=== PATIENT | male | born 1960 | race Caucasian/White ===

== ENCOUNTER 2016-08-12 06:55 | Day surgery (SDC) | payer BC ==
[2016-08-07 16:26] VITALS: BMI 18.7
[~2016-08-12 06:55] MED LIST: LACTATED RINGERS 1,000 ML IV SCH
[2016-08-12] MEDS ORDERED: LACTATED RINGERS 1,000 ML IV ONE (07:08)
[2016-08-12 07:17] VITALS: TEMP 97
[2016-08-12] MEDS ORDERED: PROPOFOL 10 MG/ML 20 ML VIAL IV ONE (07:37)
--- NOTE | 2016-08-12 07:50 | P.GSHP ---
History of Present Illness H&P Date: 08/12/16 Chief Complaint: Screening colonoscopy This is a 56-year-old male referred from Dr. Jacklyn Garay. Patient presents today for screening colonoscopy. His last colonoscopy was over 10 years ago. He denies a significant GI complaints. - Constitutional Constitutional: Reports as per HPI Past Medical History Past Medical History: Atrial Fibrillation, Hyperlipidemia, Hypertension Additional Past Medical History / Comment(s): L lung collapsed at age 18. Hx. of kidney stones. History of Any Multi-Drug Resistant Organisms: None Reported Additional Past Surgical History / Comment(s): Sinus surgery, chest tube, colonoscopy. Past Anesthesia/Blood Transfusion Reactions: No Reported Reaction Past Psychological History: No Psychological Hx Reported Smoking Status: Never smoker Past Alcohol Use History: Occasional Past Drug Use History: None Reported Medications and Allergies Home Medications Medication Instructions Recorded Confirmed Type Atenolol [Tenormin] 50 mg PO DAILY 09/14/15 08/12/16 History Atorvastatin [Lipitor] 20 mg PO HS 09/14/15 08/12/16 History Flecainide [Tambocor] 50 mg PO Q12HR 09/14/15 08/12/16 History Fluticasone Nasal [place] [Flonase 1 spray EA NOSTRIL DAILY 09/14/15 08/12/16 History Nasal [place]] Allergies Allergy/AdvReac Type Severity Reaction Status Date / Time No Known Allergies Allergy Verified 08/12/16 07:10 Surgical - Exam Vital Signs Temp Pulse Resp BP Pulse Ox 97.0 F L 60 18 115/72 97 08/12/16 07:15 08/12/16 07:15 08/12/16 07:15 08/12/16 07:15 08/12/16 07:15 - General well developed, no distress - Eyes PERRL - ENT normal pinna - Neck no masses - Respiratory normal expansion - Cardiovascular Rhythm: regular - Abdomen Abdomen: soft, non tender Assessment and Plan Plan: We'll perform screening colonoscopy.
--- NOTE | 2016-08-12 08:02 | P.OP ---
Date of Procedure: 08/12/16 Preoperative Diagnosis: Screening colonoscopy Postoperative Diagnosis: Normal colonoscopy Procedure(s) Performed: Colonoscopy Anesthesia: MAC Surgeon: Benja Mcgrath Pathology: none sent Condition: stable Disposition: PACU Description of Procedure: PROCEDURE: The patient was placed on the endoscopy table in the lateral position. Digital rectal examination was performed which revealed no abnormalities. The prostate was symmetrical without nodules. Flexible colonoscope was then placed in the patient's anus and passed throughout the entire colon. The ileocecal valve was visualized. The cecum, ascending, transverse, descending and sigmoid colon were normal. The rectum was normal as well. There were no masses, polyps or diverticula noted in the entire colon. SUMMARY OF FINDINGS: Normal colonoscopy.
[2016-08-12 08:34] VITALS: BP 115/84; PULSE 62; RESP 18
== END 2016-08-12 08:39 | disposition home or self-care (01) ==
LOC: ORWHC2ENDO 06:55
PROVIDERS: ATTEND Surgery
DX: Z12.11 Encounter for screening for malignant neoplasm of colon (principal); E78.5 Hyperlipidemia, unspecified; I10 Essential (primary) hypertension; I48.91 Unspecified atrial fibrillation; Z87.442 Personal history of urinary calculi; Z79.899 Other long term (current) drug therapy
CPT/HCPCS: J2704; G0121; 99153

== ENCOUNTER 2018-08-31 11:26 | Day surgery (SDC) | payer BC ==
[2018-08-25 14:44] VITALS: BMI 32.3
[~2018-08-31 11:26] MED LIST changes: +SODIUM CHLORIDE 0.9% 1,000 ML IV SCH
[2018-08-31 12:38] LABS: Basophils % (A) 0 %; Eosinophils # (A) 0.3 k/uL (0-0.7); Eosinophils % (A) 5 %; HCT 47.5 % (39.0-53.0); HGB 15.6 gm/dL (13.0-17.5); Lymphocytes # (A) 1.2 k/uL (1.0-4.8); Lymphocytes % (A) 21 %; MCH 31.3 pg (25.0-35.0); MCHC 32.8 g/dL (31.0-37.0); MCV 95.5 fL (80.0-100.0); Mean Platelet Volume 6.3; Monocytes # (A) 0.3 k/uL (0-1.0); Monocytes % (A) 5 %; Neutrophils # (A) 3.8 k/uL (1.3-7.7); Neutrophils % (A) 67 %; Platelet Count 241 k/uL (150-450); RBC 4.97 m/uL (4.30-5.90); WBC 5.7 k/uL (3.8-10.6)
[2018-08-31 12:46] LABS: Anion Gap 6 mmol/L; Blood Urea Nitrogen 14 mg/dL (9-20); Calcium 9.6 mg/dL (8.4-10.2); Carbon Dioxide 26 mmol/L (22-30); Chloride 108 mmol/L (98-107); Glucose 85 mg/dL (74-99); Sodium 140 mmol/L (137-145)
[2018-08-31 13:05] LABS: Potassium 5.2 mmol/L (3.5-5.1)
[2018-08-31] MEDS ORDERED: LIDOCAINE 1% INJ 10MG/ML (20 ML MDV) ONE (13:12)
[2018-08-31] MEDS ORDERED: PROPOFOL 10 MG/ML 20 ML VIAL IV ONE (13:13)
[2018-08-31] MEDS ORDERED: NEOSTIGMINE 1 MG/ML 10 ML VIAL ONE (13:13)
[2018-08-31] MEDS ORDERED: MIDAZOLAM 2 MG/2 ML VIAL ONE (13:13)
[2018-08-31] MEDS ORDERED: SUCCINYLCHOLINE CHLORIDE 100 MG/5 ML SYR IV ONE (13:13)
[2018-08-31] MEDS ORDERED: PHENYLEPHRINE-0.9% NACL SYG 1 MG/10 ML SYRINGE ONE (13:13)
[2018-08-31] MEDS ORDERED: ISOPROTERENOL 250 MCG/1.25 ML SYR IV ONE (13:13)
[2018-08-31] MEDS ORDERED: fentaNYL (PF) 50 MCG/ML 2 ML AMP ONE (13:13)
[2018-08-31] MEDS ORDERED: ROCURONIUM BROMIDE 10 MG/ML 10 ML VIAL IV ONE (13:13)
[2018-08-31] MEDS ORDERED: GLYCOPYRROLATE 0.2 MG/ML 2 ML VIAL ONE (13:13)
[2018-08-31] MEDS ORDERED: LIDOCAINE 1% INJ 10MG/ML (20 ML MDV) SQ ONE (13:42)
[2018-08-31] MEDS ORDERED: IV FLUID CONTINUATION 800 ML IV ONE (13:43)
[2018-08-31] MEDS ORDERED: HEPARIN SODIUM (1,000 UNIT/ML) 1,000 UNIT in SODIUM CHLORIDE 0.9% 1,000 ML IRRIGATION ONE (14:20)
[2018-08-31] MEDS ORDERED: LACTATED RINGERS 1,000 ML IV ONE (15:20)
[2018-08-31] MEDS ORDERED: ACETAMINOPHEN TAB 325 MG TAB PO PRN ×2 (15:40→16:16)
--- NOTE | 2018-08-31 15:50 | P.PRLE ---
RE: Devon Tavares Dear Jacklyn Devon Anusha presented to the office with typical atrial flutter. He had been experiencing episodes of palpitations since April. He underwent successful radio frequency ablation. I plan to stop his atenolol and watch for any future arrhythmias In the past he had a history of atrial fibrillation and I had treated her with oral flecainide but he stopped it on account of complaints of memory loss At this time I would recommend continuing anticoagulation with ELIQUIS apixaban Thank you for entrusting me with the care of the patient Warm regards Sincerely Ike Lainez
[2018-08-31] MEDS ORDERED: ACETAMINOPHEN IV (For NPO) 1,000 MG in EMPTY BAG 1 BAG IVPB ONE (16:15)
[2018-08-31] MEDS ORDERED: ONDANSETRON 4 MG/2 ML VIAL IVP ONE (16:25)
[2018-08-31] MEDS: HYDROcodone/APAP 5-325MG 1 EACH TAB PO PRN ×2 (17:16→20:28)
[2018-08-31] MEDS: APIXABAN 5 MG TAB PO SCH (20:28)
[2018-09-01 05:13] VITALS: PULSE 77
[2018-09-01 07:49] VITALS: BP 119/76; RESP 18; TEMP 97.4
--- NOTE | 2018-09-01 08:26 | CE ---
CARDIAC ELECTROPHYSIOLOGY REPORT Mr. Tavares is a 58-year-old male patient who has a history of recurrent palpitations since April and recently was found to be in a typical atrial flutter, symptomatic. He was anticoagulated and was brought in for an EP study and ablation. The patient brought to the EP lab in a fasting state. Written informed consent was obtained prior to the procedure. The right and left groins were prepped and draped as per protocol. Venous sheaths were placed in the right vein via these diagnostic mapping and ablation catheters were placed. Intracardiac echo catheter was placed. The patient was in atrial flutter at the start of the study. Via a long sheath, the mapping ablation catheter was placed in the isthmus and a concealed entrainment was noted with post pacing interval very close to the tachycardia cycle length. RF ablation was performed in the mid isthmus and the tachycardia was terminated. Thereafter, with intracardiac echocardiography, in sinus rhythm, 3-D mapping of the isthmus and the right atrium was once again performed and complete anatomic line was made from the tricuspid valve up to the eustachian ridge without any gaps. With differential pacing, bidirectional block was proven. The isthmus conduction time was 198 milliseconds with pacing on either side of the line. Following that, a detailed EP study was performed since he has a history of atrial fibrillation, but could not tolerate flecainide. Sinus node recovery times at 600, 500 and 400 milliseconds were 1333, 1308 and 1241 milliseconds. Corresponding corrected sinus recovery times within normal limits. AV node Wenckebach block 400 milliseconds, VA Wenckebach block 550 milliseconds. Atrial ERP from the high right atrium was 600/260 milliseconds. Burst stimulation was performed in the high right atrium from 400 milliseconds down to 230 milliseconds. No atrial fibrillation induced. Isuprel wide-open followed by 5 mcg of Isuprel was started. Coronary extra stimulation up to double extrastimuli from the coronary sinus was performed. Burst stimulation was performed from the coronary sinus down to 200 milliseconds. Very brief episodes of atrial tachycardia with distal to proximal coronary sinus sequence noted, but this lasted for only a few beats and was inconsistently induced. No atrial fibrillation was induced. At the end of the procedure, intracardiac echocardiography revealed absence of any pericardial effusion. RESULT: Diagnostic EP study revealing typical atrial flutter as a mechanism of tachycardia. Successful radiofrequency ablation was performed with complete bidirectional block. Normal sinus node recovery times. Normal AV node function. No evidence of slow pathway conduction. PLAN: Stop atenolol. Continue apixaban 5 mg twice daily. MMODL / IJN: [id number] /
[2018-09-01] MEDS ORDERED: PRAVASTATIN SODIUM 20 MG TAB PO SCH (09:00)
[2018-09-01] MEDS ORDERED: ATENOLOL 50 MG TAB PO SCH (09:00)
[2018-09-01] MEDS: APIXABAN 5 MG TAB PO SCH (09:09)
--- NOTE | 2018-09-01 11:58 | P.DS ---
Providers Attending physician: Ike Lainez Primary care physician: [facility] Course: Patient is doing well. He has no dizziness lightheadedness palpitations chest pain or shortness of breath he is lying comfortably in bed His groins were examined and they've healed well Normal heart sounds regular Breath sounds are clear no rhonchi no crackles Abdomen soft nontender Adnexa and is warm edema Impression Symptomatic typical atrial flutter status post successful ablation History of paroxysmal atrial fibrillation intolerant of flecainide Bicuspid aortic valve Plan Continue ELIQUIS, stop atenolol discharge home today in follow-up with Dr. Velázquez in about 2 weeks Patient Condition at Discharge: Stable Plan - Discharge Summary Discharge Rx Participant: Yes New Discharge Prescriptions: Discontinued Atenolol [Tenormin] 50 mg PO DAILY No Action Fluticasone Nasal [place] [Flonase Nasal [place]] 1 spray EA NOSTRIL DAILY PRN PRN Reason: ALLERGIES Apixaban [Eliquis] 5 mg PO BID Pravastatin Sodium [Pravachol] 20 mg PO DAILY Potassium 1 tab PO DAILY Discharge Medication List Fluticasone Nasal [place] [Flonase Nasal [place]] 1 spray EA NOSTRIL DAILY PRN 09/14/15 [History] Apixaban [Eliquis] 5 mg PO BID 08/18/18 [History] Potassium 1 tab PO DAILY 08/18/18 [History] Pravastatin Sodium [Pravachol] 20 mg PO DAILY 08/18/18 [History] Follow up Appointment(s)/Referral(s): Ike Lainez MD [STAFF PHYSICIAN] - 2 Weeks (Groin check within 2 weeks attention Peggy Teran Keep appointment scheduled for September 11 @ 2:30pm.) Activity/Diet/Wound Care/Special Instructions: Post EP study - Ablation instructions 1. Keep access sites dry for 2 days. 2. No heavy lifting or straining for 2 days. 3. Avoid bending the hips repeatedly for 2 days. 4. You may go up and down stairs slowly Call if the following is noted 1. Bleeding, increasing swelling or pain at the access sites. 2. Increasing chest discomfort, especially upon taking a deep breath. 3. Increasing shortness of breath, at rest or with exertion. 4. Undue cough / phlegm 5. Difficulty or pain while swallowing. 6. Pain or change in color in the extremities. 7. Fever, chills, rigors. 8. Increasing headache or neurologic symptoms. 9. Dizziness, fainting, palpitations Stop atenolol Continue ELIQUIS Discharge Disposition: HOME SELF-CARE
== END 2018-09-01 13:08 | disposition home or self-care (01) ==
LOC: CATHEP 11:26 → 1SOBS 16:01 → CATHEP 09-01 13:08
PROVIDERS: ATTEND Internal Medicine Clinical Cardiac Electrophysiology
DX: I48.3 Typical atrial flutter (principal); I48.0 Paroxysmal atrial fibrillation; I10 Essential (primary) hypertension; Q23.1 Congenital insufficiency of aortic valve; I34.0 Nonrheumatic mitral (valve) insufficiency; I51.7 Cardiomegaly; E78.5 Hyperlipidemia, unspecified; Z79.01 Long term (current) use of anticoagulants; Z79.899 Other long term (current) drug therapy; Z88.2 Allergy status to sulfonamides
CPT/HCPCS: 93623; 93662; 93613; 93653; 80048; 85025; C1894; C1769 ×2; C1730 ×2; C1759; C1893; C1732; J2250; J2710; J2405; J2001; J3010; J1644; J2370; J0330; J2704

== ENCOUNTER 2019-12-15 05:13 | Emergency (ER) | payer BC ==
[2019-12-15] MEDS ORDERED: SODIUM CHLORIDE 0.9% 1,000 ML IV STA ×2 (05:28)
[2019-12-15] MEDS ORDERED: MORPHINE SULFATE 4 MG/ML SYRINGE IV STA (05:28)
--- NOTE | 2019-12-15 05:29 | ED ---
Abdominal Pain HPI - General Chief Complaint: Abdominal Pain Stated Complaint: back/abd pain Time Seen by Provider: 12/15/19 05:15 Source: patient, RN notes reviewed, old records reviewed Mode of arrival: ambulatory Limitations: no limitations - History of Present Illness Initial Comments: This is a 59-year-old male DF for evaluation patient having recurrent right- sided flank pain severe right-sided pain radiating to groin with blood in the ER. Decreased urination, severe pain when he is trying to ER today. Patient has mild nausea no vomiting patient does have history of kidney stones states his pain is significantly worse MD Complaint: abdominal pain, flank pain (Right-sided) -: days(s) Location: diffuse, R flank Radiation: R flank Migration to: suprapubic Severity: severe Severity scale (1-10): 8 Quality: stabbing Consistency: constant Improves With: nothing Worsens With: nothing Associated Symptoms: nausea, anorexia - Related Data Home Medications Medication Instructions Recorded Confirmed Losartan [Cozaar] 25 mg PO DAILY 12/15/19 12/15/19 Pravastatin Sodium [Pravachol] 40 mg PO DAILY 12/15/19 12/15/19 Allergies Allergy/AdvReac Type Severity Reaction Status Date / Time Sulfa (Sulfonamide Allergy Itching Verified 12/15/19 06:37 Antibiotics) Review of Systems ROS Statement: Those systems with pertinent positive or pertinent negative responses have been documented in the HPI. ROS Other: All systems not noted in ROS Statement are negative. Past Medical History Past Medical History: Cancer Additional Past Medical History / Comment(s): SEE DR WEEMS H&P, L lung collapsed at age 18. chest tube, Hx. of kidney stones. prostate cancer History of Any Multi-Drug Resistant Organisms: None Reported Past Surgical History: Orthopedic Surgery Additional Past Surgical History / Comment(s): CARDIOVERSION, LEFT LITTLE FINGER SX, SX ON RT HAND MIDDLE FINGER, Sinus surgery, colonoscopy. prostatectomy Past Anesthesia/Blood Transfusion Reactions: No Reported Reaction Past Psychological History: No Psychological Hx Reported Smoking Status: Never smoker Past Alcohol Use History: Occasional Past Drug Use History: None Reported - Past Family History Father Family Medical History: Cancer Additional Family Medical History / Comment(s): LUNG Sister(s) Family Medical History: Cancer Additional Family Medical History / Comment(s): 4 SISTERS HAVE HAD CANCER General Exam Limitations: no limitations General appearance: alert, in no apparent distress, anxious Head exam: Present: atraumatic, normocephalic, normal inspection Eye exam: Present: normal appearance, PERRL, EOMI. Absent: scleral icterus, conjunctival injection, periorbital swelling ENT exam: Present: normal exam, mucous membranes moist Neck exam: Present: normal inspection. Absent: tenderness, meningismus, lymphadenopathy Respiratory exam: Present: normal lung sounds bilaterally. Absent: respiratory distress, wheezes, rales, rhonchi, stridor Cardiovascular Exam: Present: regular rate, normal rhythm, normal heart sounds. Absent: systolic murmur, diastolic murmur, rubs, gallop, clicks GI/Abdominal exam: Present: soft, normal bowel sounds. Absent: distended, tenderness, guarding, rebound, rigid Extremities exam: Present: normal inspection, full ROM, normal capillary refill. Absent: tenderness, pedal edema, joint swelling, calf tenderness Back exam: Present: normal inspection Neurological exam: Present: alert, oriented X3, CN II-XII intact Psychiatric exam: Present: normal affect, normal mood Skin exam: Present: warm, dry, intact, normal color. Absent: rash Course Vital Signs 12/15/19 12/15/19 05:16 07:45 Temperature 98.3 F 98.2 F Pulse Rate 54 L 72 Respiratory 18 16 Rate Blood Pressure 138/73 126/68 O2 Sat by Pulse 99 97 Oximetry - Reevaluation(s) Reevaluation #1: Medical record is reviewed Patient has pain control Medical Decision Making - Medical Decision Making 59 male to the ER for evaluation patient has a for evaluation of abdominal pain right-sided kidney stone given pain control can be discharged home - Lab Data Result diagrams: 12/15/19 05:46 12/15/19 05:46 Lab Results 12/15/19 12/15/19 12/15/19 Range/Units 05:46 05:46 05:46 WBC 12.5 H (3.8-10.6) k/uL RBC 4.49 (4.30-5.90) m/uL Hgb 14.0 (13.0-17.5) gm/dL Hct 42.3 (39.0-53.0) % MCV 94.2 (80.0-100.0) fL MCH 31.2 (25.0-35.0) pg MCHC 33.1 (31.0-37.0) g/dL RDW 12.7 (11.5-15.5) % Plt Count 238 (150-450) k/uL Neutrophils % 86 % Lymphocytes % 8 % Monocytes % 4 % Eosinophils % 1 % Basophils % 0 % Neutrophils # 10.8 H (1.3-7.7) k/uL Lymphocytes # 1.0 (1.0-4.8) k/uL Monocytes # 0.5 (0-1.0) k/uL Eosinophils # 0.1 (0-0.7) k/uL Basophils # 0.1 (0-0.2) k/uL Sodium 138 (137-145) mmol/L Potassium 4.7 (3.5-5.1) mmol/L Chloride 106 (98-107) mmol/L Carbon Dioxide 25 (22-30) mmol/L Anion Gap 7 mmol/L BUN 20 (9-20) mg/dL Creatinine 1.06 (0.66-1.25) mg/dL Est GFR (CKD-EPI)AfAm 88 (>60 ml/min/1.73 sqM) Est GFR (CKD-EPI)NonAf 76 (>60 ml/min/1.73 sqM) Glucose 140 H (74-99) mg/dL Plasma Lactic Acid Scooter (0.7-2.0) mmol/L Calcium 9.8 (8.4-10.2) mg/dL Total Bilirubin 0.3 (0.2-1.3) mg/dL AST 30 (17-59) U/L ALT 40 (4-49) U/L Alkaline Phosphatase 74 (38-126) U/L Troponin I (0.000-0.034) ng/mL Total Protein 7.7 (6.3-8.2) g/dL Albumin 4.6 (3.5-5.0) g/dL Amylase 99 (30-110) U/L Lipase 103 (23-300) U/L Urine Color Yellow Urine Appearance Clear (Clear) Urine pH 5.0 (5.0-8.0) Ur Specific [place] 1.023 (1.001-1.035) Urine Protein Trace H (Negative) Urine Glucose (UA) Negative (Negative) Urine Ketones Negative (Negative) Urine Blood Large H (Negative) Urine Nitrite Negative (Negative) Urine Bilirubin Negative (Negative) Urine Urobilinogen <2.0 (<2.0) mg/dL Ur Leukocyte Esterase Negative (Negative) Urine RBC 136 H (0-5) /hpf Urine WBC 2 (0-5) /hpf Urine Bacteria Rare H (None) /hpf Urine Mucus Rare H (None) /hpf 12/15/19 12/15/19 Range/Units 05:46 05:46 WBC (3.8-10.6) k/uL RBC (4.30-5.90) m/uL Hgb (13.0-17.5) gm/dL Hct (39.0-53.0) % MCV (80.0-100.0) fL MCH (25.0-35.0) pg MCHC (31.0-37.0) g/dL RDW (11.5-15.5) % Plt Count (150-450) k/uL Neutrophils % % Lymphocytes % % Monocytes % % Eosinophils % % Basophils % % Neutrophils # (1.3-7.7) k/uL Lymphocytes # (1.0-4.8) k/uL Monocytes # (0-1.0) k/uL Eosinophils # (0-0.7) k/uL Basophils # (0-0.2) k/uL Sodium (137-145) mmol/L Potassium (3.5-5.1) mmol/L Chloride (98-107) mmol/L Carbon Dioxide (22-30) mmol/L Anion Gap mmol/L BUN (9-20) mg/dL Creatinine (0.66-1.25) mg/dL Est GFR (CKD-EPI)AfAm (>60 ml/min/1.73 sqM) Est GFR (CKD-EPI)NonAf (>60 ml/min/1.73 sqM) Glucose (74-99) mg/dL Plasma Lactic Acid [place] 1.9 (0.7-2.0) mmol/L Calcium (8.4-10.2) mg/dL Total Bilirubin (0.2-1.3) mg/dL AST (17-59) U/L ALT (4-49) U/L Alkaline Phosphatase (38-126) U/L Troponin I <0.012 (0.000-0.034) ng/mL Total Protein (6.3-8.2) g/dL Albumin (3.5-5.0) g/dL Amylase (30-110) U/L Lipase (23-300) U/L Urine Color Urine Appearance (Clear) Urine pH (5.0-8.0) Ur Specific [place] (1.001-1.035) Urine Protein (Negative) Urine Glucose (UA) (Negative) Urine Ketones (Negative) Urine Blood (Negative) Urine Nitrite (Negative) Urine Bilirubin (Negative) Urine Urobilinogen (<2.0) mg/dL Ur Leukocyte Esterase (Negative) Urine RBC (0-5) /hpf Urine WBC (0-5) /hpf Urine Bacteria (None) /hpf Urine Mucus (None) /hpf - Radiology Data Radiology results: report reviewed (CT pelvis positive for right-sided kidney stone), image reviewed Disposition Clinical Impression: Right kidney stone Disposition: HOME SELF-CARE Condition: Good Instructions (If sedation given, give patient instructions): Kidney Stones (ED) Is patient prescribed a controlled substance at d/c from ED?: No Referrals: None,Stated [REFERRING] - 1-2 days
[2019-12-15 05:59] LABS: Basophils # (A) 0.1 k/uL (0-0.2); Basophils % (A) 0 %; Eosinophils # (A) 0.1 k/uL (0-0.7); Eosinophils % (A) 1 %; HCT 42.3 % (39.0-53.0); Lymphocytes % (A) 8 %; MCH 31.2 pg (25.0-35.0); MCHC 33.1 g/dL (31.0-37.0); MCV 94.2 fL (80.0-100.0); Mean Platelet Volume 7.1; Monocytes # (A) 0.5 k/uL (0-1.0); Monocytes % (A) 4 %; Neutrophils # (A) 10.8 k/uL (1.3-7.7); Neutrophils % (A) 86 %; Platelet Count 238 k/uL (150-450); RBC 4.49 m/uL (4.30-5.90); RDW 12.7 % (11.5-15.5); WBC 12.5 k/uL (3.8-10.6)
[2019-12-15 06:06] LABS: Albumin 4.6 g/dL (3.5-5.0); Calcium 9.8 mg/dL (8.4-10.2); Potassium 4.7 mmol/L (3.5-5.1); Total Bilirubin 0.3 mg/dL (0.2-1.3); Total Protein 7.7 g/dL (6.3-8.2)
[2019-12-15 06:12] LABS: Appearance,Urine Clear (Clear); Bacteria,Urine Rare /hpf; Bilirubin,Urine Negative (Negative); Blood,Urine Large (Negative); Color,Urine Yellow; Glucose,Urine (UA) Negative (Negative); Ketones,Urine Negative (Negative); Leukocyte Esterase,Urine Negative (Negative); Mucus,Urine Rare /hpf; Nitrite,Urine Negative (Negative); Protein,Urine Trace (Negative); RBC,Urine 136 /hpf (0-5); Specific Gravity,Urine 1.023 (1.001-1.035); Urobilinogen,Urine <2.0 mg/dL (<2.0); WBC,Urine 2 /hpf (0-5)
[2019-12-15] MEDS ORDERED: HYDROmorphone 1 MG/ML 1 ML SYRINGE IVP STA (06:32)
[2019-12-15] MEDS ORDERED: KETOROLAC 30 MG/ML 1 ML VIAL IVP STA (06:37)
[2019-12-15] MEDS ORDERED: TAMSULOSIN 0.4 MG CAP.ER.24H PO STA (06:37)
[2019-12-15] MEDS ORDERED: ACET/COD 300 MG/30 MG STARTER PACK 6 TAB BTL PO STA (06:37)
--- NOTE | 2019-12-15 06:56 | CT ---
EXAM: CT Abdomen and Pelvis Without Intravenous Contrast CLINICAL HISTORY: Right flank pain. TECHNIQUE: Axial computed tomography images of the abdomen and pelvis without intravenous contrast. CTDI is 17.9 mGy and DLP is 1145 mGy-cm. This CT exam was performed using one or more of the following dose reduction techniques: automated exposure control, adjustment of the mA and/or kV according to patient size, and/or use of iterative reconstruction technique. COMPARISON: No relevant prior studies available. FINDINGS: Lung bases: Unremarkable. No mass. No consolidation. ABDOMEN: Liver: Hepatic steatosis. No definite hepatic lesion. Gallbladder and bile ducts: Unremarkable. No calcified stones. No ductal dilation. Pancreas: Unremarkable. No ductal dilation. Spleen: Unremarkable. No splenomegaly. Adrenals: Unremarkable. No mass. Kidneys and ureters: There is an obstructing 5 mm calculus within the proximal right ureter, with mild right-sided hydronephrosis and proximal hydroureter as well as perinephric infiltrative changes. Findings are consistent with a right-sided obstructive uropathy. Additional nonobstructing calculi seen within bilateral renal collecting systems. Bilateral renal cysts, incompletely characterized on this noncontrast enhanced exam. These include an exophytic 5 cm cyst of the lateral left kidney. Stomach and bowel: Unremarkable. No obstruction. No mucosal thickening. PELVIS: Appendix: No findings to suggest acute appendicitis. Bladder: Unremarkable. No stones. Reproductive: Unremarkable as visualized. ABDOMEN and PELVIS: Intraperitoneal space: Unremarkable. No free air. No significant fluid collection. Bones/joints: No acute fracture. No dislocation. Soft tissues: Unremarkable. Vasculature: Unremarkable. No abdominal aortic aneurysm. Lymph nodes: Unremarkable. No enlarged lymph nodes. IMPRESSION: Right-sided obstructive uropathy due to a 5 mm calculus within the proximal right ureter. Additional small nonobstructing calculi within bilateral renal collecting systems. Bilateral renal cysts. Hepatic steatosis.
[2019-12-15 07:46] VITALS: BP 126/68; PULSE 72; RESP 16; TEMP 98.2
== END 2019-12-15 07:46 | disposition home or self-care (01) ==
LOC: EC 05:13
DX: N20.0 Calculus of kidney (principal); Z88.2 Allergy status to sulfonamides; Z80.1 Family history of malignant neoplasm of trachea, bronchus and lung; Z85.46 Personal history of malignant neoplasm of prostate; Z90.79 Acquired absence of other genital organ(s)
CPT/HCPCS: 36415; 80053; 82150; 83605; 83690; 84484; 85025; 81001; 74176; 99284; 96374; 96375 ×2; 96361 ×2; J2270; J1885; J1170

== ENCOUNTER → 2019-12-31 | Outpatient (CLI) | payer BC ==
[2019-12-31 14:34] LABS: Basophils % (A) 0 %; Eosinophils % (A) 0 %; HGB 13.1 gm/dL (13.0-17.5); Lymphocytes # (A) 1.1 k/uL (1.0-4.8); Lymphocytes % (A) 12 %; MCH 31.4 pg (25.0-35.0); MCHC 33.5 g/dL (31.0-37.0); MCV 93.7 fL (80.0-100.0); Mean Platelet Volume 7.2; Monocytes # (A) 0.3 k/uL (0-1.0); Monocytes % (A) 4 %; Neutrophils # (A) 7.3 k/uL (1.3-7.7); Neutrophils % (A) 83 %; Platelet Count 257 k/uL (150-450); RBC 4.16 m/uL (4.30-5.90); WBC 8.8 k/uL (3.8-10.6)
== END | disposition home or self-care (01) ==
LOC: LABPAT 12:51
PROVIDERS: ATTEND Urology
DX: Z01.818 Encounter for other preprocedural examination (principal); N20.1 Calculus of ureter
CPT/HCPCS: 80051; 82565; 84520; 85025

== ENCOUNTER 2020-01-03 10:03 | Day surgery (SDC) | payer BC ==
[2019-12-30 17:03] VITALS: BMI 30.7
--- NOTE | 2019-12-31 21:17 | P.GSHP ---
History of Present Illness H&P Date: 12/31/19 Chief Complaint: Right ureteral calculus The patient is a 59-year-old male with a history of urolithiasis who first developed right flank pain on 12/12/2019. The pain worsened and he was seen in the [facility] emergency room on 12/14. Noncontrast CT scan of the abdome n and pelvis identified a 5 mm calculus in the proximal right ureter with moderate right hydronephrosis. Nonobstructive renal calculi were noted bilaterally. The patient was seen by me on 12/20. I reviewed the CT scan with the patient. At that time the patient was more comfortable and it was elected to attempt conservative treatment with the use of tamsulosin. Patient was initially tolerating the pain but over the last week has developed increasing right flank pain. After reviewing treatment options the patient now wishes to proceed with ESWL treatment of the proximal right ureteral calculus. The patient has a history of urolithiasis and previously underwent left ureteroscopy for removal of a calculus in 1987. He has no history of recurrent urinary tract infection. - Constitutional Constitutional: Denies chills, Denies fever - Cardiovascular Cardiovascular: Denies chest pain, Denies edema, Denies rapid heart beat, Denies shortness of breath - Respiratory Respiratory: Denies cough, Denies wheezing - Gastrointestinal Gastrointestinal: Reports as per HPI - Genitourinary (Female) Genitourinary: Denies dysuria, Denies hematuria Past Medical History Past Medical History: Atrial Fibrillation, Atrial Flutter, Cancer (Prostate cancer), Hearing Disorder / Deafness, Hyperlipidemia, Hypertension, Musculoskeletal Disorder, Skin Disorder, Sleep Apnea/CPAP/BIPAP Additional Past Medical History / Comment(s): Sl hearing loss. L lung collapsed at age 18, had chest tube. Hx of kidney stones. Prostate cancer 2018. Rt knee prob. Unable to use cpap. Varicose veins. Bug bites on abd and leg, poss spider bites - seen by Dr mccollum, had steroid inj. History of Any Multi-Drug Resistant Organisms: None Reported Past Surgical History: Cardiac Ablation, Orthopedic Surgery, Prostate Surgery (Robotically assisted laparoscopic prostatectomy 06/11/2017, Sinus surgery, colonoscopy, treatment of pneumothorax) Additional Past Surgical History / Comment(s): Cardioversion. Ablation 2019. LT Little Finger Sx, Sx RT Hand Middle Finger, Sinus surgery. Colonoscopy. Prostatectomy. Rt knee scope. Kidney stone surgery. Past Anesthesia/Blood Transfusion Reactions: No Reported Reaction, Motion Sickness Smoking Status: Never smoker - Past Family History Father Family Medical History: Cancer Additional Family Medical History / Comment(s): LUNG Sister(s) Family Medical History: Cancer Additional Family Medical History / Comment(s): 3 SISTERS HAVE HAD CANCER - 1 w/ thyroid, 2 w/ ovarian, 1 w/ pancreas Medications and Allergies Home Medications Medication Instructions Recorded Confirmed Type Losartan [Cozaar] 50 mg PO DAILY 12/15/19 12/30/19 History Pravastatin Sodium [Pravachol] 40 mg PO DAILY 12/15/19 12/30/19 History Acetaminophen Tab [Tylenol] 325 - 650 mg PO Q4H PRN 12/30/19 12/30/19 History Ketorolac Tromethamine 10 mg PO DIRECTED PRN 12/30/19 12/30/19 History Allergies Allergy/AdvReac Type Severity Reaction Status Date / Time Sulfa (Sulfonamide Allergy Itching Verified 12/30/19 16:29 Antibiotics) Surgical - Exam - General well developed, well nourished, no distress, obese - ENT no hearing loss - Neck no masses, no bruits, no lymphadectomy - Respiratory normal respiratory effort, clear to auscultation - Cardiovascular Rhythm: irregularly irregular Abnormal Heart Sounds: no systolic murmur - Abdomen Abdomen: soft, no organomegaly Hernia: none - Genitourinary normal penis with no external lesions, testicles present Assessment and Plan (1) Right ureteral calculus Narrative/Plan: The patient will undergo ESWL treatment of his right ureteral calculus under intravenous sedation. He is aware of the operative risks which include anesthesia, bleeding, infection, ureteral injury and inability to adequately fragment the calculus which would require a secondary procedure for removal. Status: Acute Code(s): N20.1 - CALCULUS OF URETER SNOMED Code(s): 61953436
[~2020-01-03 10:03] MED LIST changes: +LIDOCAINE 1% (10MG/ML) FOR IV START INTRADERMA PRN; -SODIUM CHLORIDE 0.9% 1,000 ML IV SCH
[2020-01-03 10:30] VITALS: TEMP 96.4
[2020-01-03 10:33] LABS: Glucose,Whole Blood 89 mg/dL (75-99)
[2020-01-03] MEDS ORDERED: KETAMINE 10 MG/ML 20 ML VIAL ONE (10:56)
[2020-01-03] MEDS ORDERED: MIDAZOLAM 2 MG/2 ML VIAL ONE (10:56)
[2020-01-03] MEDS ORDERED: fentaNYL (PF) 50 MCG/ML 2 ML AMP ONE (10:56)
--- NOTE | 2020-01-03 11:15 | XR ---
EXAMINATION TYPE: XR KUB DATE OF EXAM: 01/03/2020 10:22 AM CLINICAL HISTORY: Right ureteral calculus. Preoperative. TECHNIQUE: Supine images of the abdomen and pelvis obtained. COMPARISON: CT abdomen pelvis 12/15/2019. FINDINGS: Scattered gas is seen in non-distended small bowel loops. Gas and fecal material is seen in non-distended colon. 3 mm calcific density to the right of the L4 transverse process may represent u reteral calculus demonstrated on 12/15/2019 CT comparison. The lung bases are clear and the osseous str uctures are intact. IMPRESSION: 1. 3 mm calcific density at the level of the right L4 transverse process may represent ureteral calc ulus demonstrated on 12/15/2019 CT comparison. 2. Overall nonobstructive bowel gas pattern.
--- NOTE | 2020-01-03 11:23 | P.PN ---
Progress Note - Text Progress Note Date: 01/03/20 The patient has a history of a 5 x 7 mm right ureteral calculus which was located in the L4-L5 region on a computed tomography scan performed earlier in the month. ESWL was planned for treatment as the patient says that he had not passed the calculus. A KUB obtained preoperatively was nondiagnostic. The patient was examined using fluoroscopy and a definite calculus in the course of the right ureter was never identified. After discussion with the patient was elected to cancel the procedure. The patient will call if his pain recurs. If he remains comfortable than he will be seen in the fall for his next scheduled appointment.
[2020-01-03 11:30] VITALS: RESP 18
[2020-01-03 11:56] VITALS: BP 137/67; PULSE 67
== END 2020-01-03 12:03 | disposition home or self-care (01) ==
LOC: ORWHC2ENDO 10:03
PROVIDERS: ATTEND Urology
DX: N13.2 Hydronephrosis with renal and ureteral calculous obstruction (principal); I48.91 Unspecified atrial fibrillation; I48.92 Unspecified atrial flutter; H90.5 Unspecified sensorineural hearing loss; E78.5 Hyperlipidemia, unspecified; I10 Essential (primary) hypertension; G47.33 Obstructive sleep apnea (adult) (pediatric); I83.90 Asymptomatic varicose veins of unspecified lower extremity; S30.861D Insect bite (nonvenomous) of abdominal wall, subsequent encounter; S80.869D Insect bite (nonvenomous), unspecified lower leg, subsequent encounter; Z53.8 Procedure and treatment not carried out for other reasons; Z88.8 Allergy status to other drugs, medicaments and biological substances; Z88.2 Allergy status to sulfonamides; Z87.442 Personal history of urinary calculi; Z98.890 Other specified postprocedural states; Z85.46 Personal history of malignant neoplasm of prostate; Z87.39 Personal history of other diseases of the musculoskeletal system and connective tissue; Z87.2 Personal history of diseases of the skin and subcutaneous tissue; Z87.09 Personal history of other diseases of the respiratory system; Z90.79 Acquired absence of other genital organ(s); Z87.898 Personal history of other specified conditions; Z79.899 Other long term (current) drug therapy; Z86.79 Personal history of other diseases of the circulatory system; Z80.1 Family history of malignant neoplasm of trachea, bronchus and lung; Z80.8 Family history of malignant neoplasm of other organs or systems; Z80.41 Family history of malignant neoplasm of ovary; Z80.0 Family history of malignant neoplasm of digestive organs; W57.XXXD Bitten or stung by nonvenomous insect and other nonvenomous arthropods, subsequent encounter
CPT/HCPCS: 74018; J2250; J3010

== ENCOUNTER 2020-01-06 09:04 | Day surgery (SDC) | payer BC ==
[2020-01-04 15:09] VITALS: BMI 30.7
[~2020-01-06 09:04] MED LIST changes: -LIDOCAINE 1% (10MG/ML) FOR IV START INTRADERMA PRN
[2020-01-06 09:30] VITALS: RESP 16; TEMP 98.7
[2020-01-06] MEDS ORDERED: LIDOCAINE 1% (10MG/ML) FOR IV START INTRADERMA ONE (09:39)
[2020-01-06] MEDS ORDERED: PROPOFOL 10 MG/ML 20 ML VIAL IV ONE (09:55)
--- NOTE | 2020-01-06 09:55 | P.GSHP ---
History of Present Illness H&P Date: 01/06/20 Chief Complaint: Screening colonoscopy This a 59-year-old male referred from [facility]. Patient resents today for screening colonoscopy. He denies a significant GI complaints. Past Medical History Past Medical History: Atrial Fibrillation, Atrial Flutter, Cancer, Hearing Disorder / Deafness, Hyperlipidemia, Hypertension, Musculoskeletal Disorder, Skin Disorder, Sleep Apnea/CPAP/BIPAP Additional Past Medical History / Comment(s): Sl hearing loss., L lung collapsed at age 18 had chest tube., Hx. of kidney stones., prostate cancer 2018, rt knee prob., unable to use cpap., Varicose veins, Bug bites on abd and leg-possible spider bites- seen , had steroid injection., pt had lithotripsy scheduled 01/03/20 at [facility] but procedure was aborted-unable to locate stone . History of Any Multi-Drug Resistant Organisms: None Reported Past Surgical History: Orthopedic Surgery Additional Past Surgical History / Comment(s): CARDIOVERSION, LEFT LITTLE FINGER SX, SX ON RT HAND MIDDLE FINGER, Sinus surgery, colonoscopy. prostatectomy Past Anesthesia/Blood Transfusion Reactions: No Reported Reaction Past Psychological History: No Psychological Hx Reported Smoking Status: Never smoker Past Alcohol Use History: Occasional Past Drug Use History: None Reported - Past Family History Father Family Medical History: Cancer Additional Family Medical History / Comment(s): LUNG Sister(s) Family Medical History: Cancer Additional Family Medical History / Comment(s): 4 SISTERS HAVE HAD CANCER Medications and Allergies Home Medications Medication Instructions Recorded Confirmed Type Losartan [Cozaar] 50 mg PO DAILY 12/15/19 01/06/20 History Pravastatin Sodium [Pravachol] 40 mg PO DAILY 12/15/19 01/06/20 History Acetaminophen Tab [Tylenol] 325 - 650 mg PO Q4H PRN 12/30/19 01/06/20 History Ketorolac Tromethamine 10 mg PO DIRECTED PRN 12/30/19 01/06/20 History Allergies Allergy/AdvReac Type Severity Reaction Status Date / Time Sulfa (Sulfonamide Allergy Itching Verified 01/06/20 09:31 Antibiotics) Surgical - Exam Vital Signs Temp Pulse Resp BP Pulse Ox 98.7 F 65 16 127/82 97 01/06/20 09:20 01/06/20 09:20 01/06/20 09:20 01/06/20 09:20 01/06/20 09:20 - General well developed, well nourished, no distress - Eyes PERRL - ENT normal pinna - Neck no masses - Respiratory normal expansion - Cardiovascular Rhythm: regular - Abdomen Abdomen: soft, non tender Assessment and Plan Assessment: We'll perform screening colonoscopy.
--- NOTE | 2020-01-06 10:06 | P.OP ---
Date of Procedure: 01/06/20 Preoperative Diagnosis: Screening colonoscopy Postoperative Diagnosis: Normal colonoscopy Procedure(s) Performed: Colonoscopy Anesthesia: SLIME Surgeon: Benja Mcgrath Pathology: none sent Condition: stable Disposition: PACU Description of Procedure: The patient's placed on the endoscopy table lateral position. He received IV sedation. Digital rectal exam was performed which revealed no abnormalities. The prostate was symmetric without nodules. The colonoscope was then placed patient anus passed throughout the entire colon. The ileocecal valve was visualized. The cecum, ascending and transverse colon appeared normal. The descending and; appeared normal. Scope was then brought back the rectum and this appeared normal. Scope was brought back and withdrawn for patient.
[2020-01-06 10:24] VITALS: BP 113/77; PULSE 57
== END 2020-01-06 10:39 | disposition home or self-care (01) ==
LOC: ORWHC2ENDO 09:04
PROVIDERS: ATTEND Surgery
DX: Z12.11 Encounter for screening for malignant neoplasm of colon (principal); I48.91 Unspecified atrial fibrillation; I48.92 Unspecified atrial flutter; E78.5 Hyperlipidemia, unspecified; I10 Essential (primary) hypertension; G47.30 Sleep apnea, unspecified; H90.5 Unspecified sensorineural hearing loss; Z87.442 Personal history of urinary calculi; Z85.46 Personal history of malignant neoplasm of prostate; I83.90 Asymptomatic varicose veins of unspecified lower extremity; T14.8XXA Other injury of unspecified body region, initial encounter; Z98.890 Other specified postprocedural states; Z90.79 Acquired absence of other genital organ(s); Z80.1 Family history of malignant neoplasm of trachea, bronchus and lung; Z80.9 Family history of malignant neoplasm, unspecified; Z79.899 Other long term (current) drug therapy; Z88.2 Allergy status to sulfonamides
CPT/HCPCS: J2704; G0121

== ENCOUNTER 2020-02-29 07:59 | Day surgery (SDC) | payer BC ==
[2020-02-24 11:23] VITALS: BMI 32.1
[~2020-02-29 07:59] MED LIST changes: +ACETAMINOPHEN TAB 500 MG TAB PO ONE; +DEXAMETHASONE SOD PHOSPHATE 10 MG/ML 1 ML VIAL IV ONE; +HEPARIN SODIUM,PORCINE 5,000 UNIT/ML 1 ML VIAL SQ ONE; +MIDAZOLAM 2 MG/2 ML VIAL IV PRN; +ONDANSETRON 4 MG/2 ML VIAL IVP ONE; +SCOPOLAMINE 1.5MG/72HR PATCH TRANSDERM ONE
[2020-02-29] MEDS ORDERED: ONDANSETRON 4 MG/2 ML VIAL ONE (08:58)
[2020-02-29] MEDS ORDERED: fentaNYL (PF) 50 MCG/ML 2 ML AMP IVP ONE (09:25)
[2020-02-29] MEDS ORDERED: MIDAZOLAM 2 MG/2 ML VIAL IVP ONE (09:25)
--- NOTE | 2020-02-29 10:26 | P.GSHP ---
History of Present Illness H&P Date: 02/29/20 Chief Complaint: Umbilical hernia Is a 59-year-old male who's of umbilical hernia. Patient rents today for laparoscopic robotic-assisted repair. Past Medical History Past Medical History: Atrial Fibrillation, Atrial Flutter, Cancer, Hearing Disorder / Deafness, Hyperlipidemia, Hypertension, Musculoskeletal Disorder, Prostate Disorder, Skin Disorder, Sleep Apnea/CPAP/BIPAP Additional Past Medical History / Comment(s): Sl hearing loss. L lung collapsed at age 18, had chest tube. Hx of kidney stones. Prostate cancer 2018. Rt knee prob. Unable to use cpap. Varicose veins, no afib since ablation History of Any Multi-Drug Resistant Organisms: None Reported Past Surgical History: Cardiac Ablation, Orthopedic Surgery, Prostate Surgery Additional Past Surgical History / Comment(s): Cardioversion. Ablation 2019. LT Little Finger Sx, Sx RT Hand Middle Finger, Sinus surgery. Colonoscopy. Prostatectomy. Rt knee scope. Kidney stone surgery. Past Anesthesia/Blood Transfusion Reactions: No Reported Reaction, Motion Sickness Smoking Status: Never smoker - Past Family History Father Family Medical History: Cancer Additional Family Medical History / Comment(s): LUNG Sister(s) Family Medical History: Cancer Additional Family Medical History / Comment(s): 4 SISTERS HAVE HAD CANCER Medications and Allergies Home Medications Medication Instructions Recorded Confirmed Type Losartan [Cozaar] 50 mg PO DAILY 12/15/19 02/29/20 History Atorvastatin [Lipitor] 20 mg PO DAILY 02/29/20 02/29/20 History Allergies Allergy/AdvReac Type Severity Reaction Status Date / Time Sulfa (Sulfonamide Allergy Itching Verified 02/29/20 08:17 Antibiotics) Surgical - Exam Vital Signs Temp Pulse Resp BP Pulse Ox 97.6 F 64 16 131/67 99 02/29/20 08:21 02/29/20 08:21 02/29/20 08:21 02/29/20 08:21 02/29/20 08:21 - General well developed, well nourished - Eyes PERRL - ENT normal pinna - Neck no masses - Respiratory normal expansion - Cardiovascular Rhythm: regular - Abdomen Abdomen: soft, non tender Hernia: umbilical (2 cm) Assessment and Plan Assessment: Umbilical hernia. We'll perform laparoscopic robotic-assisted repair.
[2020-02-29] MEDS ORDERED: BUPIVACAINE (PF) 0.5% 30 ML VIAL SQ ONE (11:12)
--- NOTE | 2020-02-29 11:44 | P.OP ---
Date of Procedure: 02/29/20 Preoperative Diagnosis: Umbilical hernia Postoperative Diagnosis: Incarcerated incisional hernia Procedure(s) Performed: Laparoscopic robotic-assisted repair of incarcerated incisional hernia Anesthesia: SLIME Surgeon: Benja Mcgrath Estimated Blood Loss (ml): 5 Pathology: none sent Condition: stable Disposition: PACU Description of Procedure: RThe patient was placed on the operating table in the supine position. He received general anesthesia. His abdomen was prepped and draped usual fashion. Using a 5 mm optical trocar under direct visualization the peritoneal cavity was entered in the left upper quadrant. The abdomen was then insufflated. The lapa roscope was placed back into the perineal cavity. Next a 8 mm robotic trocar was placed in the left lower quadrant and a 12 mm robotic trocar was placed in the left lateral position. The original 5 mm trocar was exchanged for a 8 mm robotic trocar. The patient's placed in the left side up position. And the patient was undocked the robot. The umbilicus was visualized. The hernia was actually an incisional hernia located in the superior umbilical position related to previous robotic prostate surgery. Using hook cautery the incarcerated omentum was dissected free.. The fascial opening was repaired using 0V LOC suture. Next a piece of 11 cm round ventral light ST mesh was placed into the. Cavity and secured with 2 OV lock suture. The patient was undocked the robot. The needles were retrieved. The fascia of the 12 mm trocar site was closed with 0 Ethibond suture. Skin was closed interrupted 3-0 Monocryl suture. Dermabond dressings was applied. Patient top procedure well and was sent to recovery room stable condition.
[2020-02-29 12:00] VITALS: TEMP 97.7
[2020-02-29] MEDS: HYDROmorphone 0.5 MG/0.5 ML SYRINGE IVP PRN ×4 (12:04→12:26)
[2020-02-29] MEDS: fentaNYL (PF) 50 MCG/ML 2 ML AMP IVP ONE ×2 (12:36→12:42)
--- NOTE | 2020-02-29 13:15 | P.ANPRN ---
Procedure Note - Anesthesia - Nerve Block Performed Bilateral Rectus Abdominis Time Out Performed: Yes (:) Date of Procedure: 02/29/20 Procedure Start Time: Procedure Stop Time: Location of Patient: PreOp Indication: Acute Post-Operative Pain, Requested by Surgeon (Dr Mcgrath) Sedation Type: Sedate with meaningful contact maintained Preparation: Sterile Prep Position: Supine Catheter: None Needle Types: Pajunk Needle Gauge: 21 Ultrasound used to visualize needle placement: Yes Ultrasound used to observe medication spread: Yes Injectate: 0.5% Ropivacaine (see comment for volume) (15cc Ropivacaine each side. Decadron 2mg each side) Blood Aspirated: No Pain Paresthesia on Injection Noted: No Resistance on Injection: Normal Image Stored and Saved: Yes Events: Uneventful and Well Tolerated
[2020-02-29] MEDS ORDERED: HYDROcodone/APAP 5-325MG 1 EACH TAB ONE (13:35)
[2020-02-29] MEDS ORDERED: HYDROcodone/APAP 5-325MG 1 EACH TAB PO ONE (13:37)
[2020-02-29 15:44] VITALS: RESP 16
[2020-02-29 15:47] VITALS: BP 122/78; PULSE 70
== END 2020-02-29 15:24 | disposition home or self-care (01) ==
LOC: OR 07:59
PROVIDERS: ATTEND Surgery
DX: K43.0 Incisional hernia with obstruction, without gangrene (principal); I10 Essential (primary) hypertension; I48.91 Unspecified atrial fibrillation; E78.5 Hyperlipidemia, unspecified; I83.90 Asymptomatic varicose veins of unspecified lower extremity; H90.5 Unspecified sensorineural hearing loss; G47.33 Obstructive sleep apnea (adult) (pediatric); Z99.89 Dependence on other enabling machines and devices; Z88.2 Allergy status to sulfonamides; Z79.899 Other long term (current) drug therapy; Z87.442 Personal history of urinary calculi; Z85.46 Personal history of malignant neoplasm of prostate; Z80.1 Family history of malignant neoplasm of trachea, bronchus and lung; Z98.890 Other specified postprocedural states
CPT/HCPCS: 64488; 49655; J2250; J1644; J1100; J0690; J2405; J3010; J1170

== ENCOUNTER → 2020-12-22 | Outpatient (CLI) | payer BC ==
[2020-12-22 18:22] LABS: HCT 39.3 % (39.6-50.0); HGB 13.3 g/dL (13.0-17.0); MCH 32.4 pg (27.0-32.0); MCHC 33.8 g/dL (32.0-37.0); MCV 95.9 fL (80.0-97.0); Mean Platelet Volume 9.5 fL (9.5-12.2); Platelet Count 233 X 10*3/uL (140-440); RDW 12.3 % (11.5-14.5); WBC 5.14 X 10*3/uL (4.50-10.00)
== END | disposition home or self-care (01) ==
LOC: LABWHC1 09:32
PROVIDERS: ATTEND Orthopaedic Surgery
DX: Z48.89 Encounter for other specified surgical aftercare (principal); I11.9 Hypertensive heart disease without heart failure; E78.5 Hyperlipidemia, unspecified; M17.11 Unilateral primary osteoarthritis, right knee; M25.561 Pain in right knee; Z85.46 Personal history of malignant neoplasm of prostate
CPT/HCPCS: 36415; 85027; 87070

== ENCOUNTER → 2021-10-24 | Outpatient (CLI) | payer BC ==
--- NOTE | 2021-10-25 08:34 | CT ---
EXAMINATION TYPE: CT abdomen pelvis w con DATE OF EXAM: 10/24/2021 COMPARISON: CT dated 12/15/2019 HISTORY: H/O DIVERTICULITIS CT DLP: 1897.1 mGycm Automated exposure control for dose reduction was used. TECHNIQUE: Helical acquisition of images was performed from the lung bases through the pelvis. CONTRAST: Performed with Oral Contrast and with IV Contrast, patient injected with 100 mL of Isovue 300. FINDINGS: LUNG BASES: No significant abnormality is appreciated. LIVER/GB: Hepatic steatosis. With this limitation, no definite hepatic focal lesion identified. Unrem arkable gallbladder. PANCREAS: No significant abnormality is seen. SPLEEN: No significant abnormality is seen. ADRENALS: No significant abnormality is seen. KIDNEYS: Scattered bilateral renal cysts without gross suspicious feature. Bilateral nonobstructing r enal calculi measuring up to 3 mm. FREE AIR: No free air is visualized. RETROPERITONEAL ADENOPATHY: None visualized REPRODUCTIVE ORGANS: Small prostate. URINARY BLADDER: Incompletely distended. PELVIC ADENOPATHY: Scattered subcentimeter bilateral inguinal and external iliac lymph nodes, nonspe cific. OSSEOUS STRUCTURES: Marked degenerative changes at L5-S1 level. No gross aggressive bone lesion. BOWEL: Unremarkable stomach, duodenum and small bowel. Scattered segments of mild nonspecific coloni c wall thickening. Moderate fecal loading of the colon. Normal appendix. OTHER: Scattered arterial atherosclerotic calcifications. No sizable ascites. IMPRESSION: No evidence of acute diverticulitis. Bilateral nonobstructing renal calculi measuring up to 3 mm. Hep atic steatosis. Other incidental findings as detailed above.
== END | disposition home or self-care (01) ==
LOC: RADCTMAIN 11:51
PROVIDERS: ATTEND Family Medicine
DX: K63.0 Abscess of intestine (principal); K57.90 Diverticulosis of intestine, part unspecified, without perforation or abscess without bleeding
CPT/HCPCS: 74177; Q9967

== ENCOUNTER → 2023-06-06 | Outpatient (CLI) | payer BC, MEDICARE ==
--- NOTE | 2023-06-06 18:45 | PE ---
EXAMINATION TYPE: PET CT fusion skull to thigh DATE OF EXAM: 06/06/2023 CLINICAL INDICATION:Male, 63 years old with history of I65.21 OCCLUSIO STENOSIS CAROTID ARTERY; TECHNIQUE: Following the intravenous administration of 6.51 mCi of Ga-68 Illuccix (PSMA), whole bod y images are performed from the skull base to the midthigh. Images are reviewed on the computer in t he coronal, axial, and sagittal planes. Reconstructed rotating images are created on independent wor kstation and reviewed on the computer. A non-contrast CT is performed in conjunction with the PET s can. CT DLP: 1070.94 mGycm, Automated exposure control for dose reduction was used. COMPARISON: CT 10/24/2021, 12/15/2019, PET/CT None, FINDINGS: Mediastinal SUV mean is 1.9. Hepatic parenchyma SUV mean is 6.4. SKULL BASE AND NECK: No suspicious radiotracer activity. CHEST, MEDIASTINUM, AND HILAR REGION: No suspicious radiotracer activity. ABDOMEN AND PELVIS: The prostate gland is surgically absent. No abnormal soft tissue with increased radiotracer activity in the surgical bed. * Left external iliac lymph node max SUV 4.2 measuring 9 mm in short axis series 3 image 222. * Focus of radiotracer uptake within the left anterior thigh which may misregistration from adjacent lymph node max SUV 5.6. And on the right side max SUV 4.3. * Right external iliac lymph node max SUV 4.1. MUSCULOSKELETAL STRUCTURES: No suspicious radiotracer activity. OTHER CT: Atherosclerosis of the arterial vasculature. Aortic leaflet calcifications are moderate to severe.. Scattered colonic diverticula. Bilateral renal cysts. Nonobstructing bilateral renal calculi measuring up to 3 mm. Fat-containing umbilical hernia. IMPRESSION: Pelvic and bilateral inguinal lymph nodes with mildly increased radiotracer activity. These are stabl e in size from 10/24/2021 and likely reactive uptake. No other abnormal uptake is visualized.
== END | disposition home or self-care (01) ==
LOC: RADPETMAIN 14:38
PROVIDERS: ATTEND Urology
DX: I65.21 Occlusion and stenosis of right carotid artery (principal); C61 Malignant neoplasm of prostate
CPT/HCPCS: 78815; A9596

== ENCOUNTER → 2024-04-23 | Outpatient (CLI) | payer MEDICARE ==
--- NOTE | 2024-04-26 13:36 | PE ---
EXAMINATION TYPE: PET CT fusion skull to thigh DATE OF EXAM: 04/23/2024 COMPARISON: 10/24/2021 Prior PET/CT: 06/06/2023 CLINICAL INDICATION: Male, 63 years old with history of C61 PROSTATE CANCER, TECHNIQUE: Following the intravenous administration of 6.75 mCi of Gallium-28 labeled PSMA, whole ozzy dy images are performed from the skull base to the midthigh. Images are reviewed on the computer in the coronal, axial, and sagittal planes. Reconstructed rotating images are created on [employer] and reviewed on the computer. A localization and attenuation correction CT is performed i n conjunction with the PET scan. DLP: 1114.90 mGycm SCAN: Subsequent Scan FINDINGS: NECK: There is normal radiotracer distribution through the salivary glands. No abnormal uptake THORAX: No abnormal uptake ABDOMEN:There is normal radiotracer excretion through the renal collecting system. Normal uptake wit hin the liver and spleen. No abnormal uptake PELVIS: No abnormal uptake. Suspicious uptake within the lymphadenopathy is not identified. OSSEOUS STRUCTURES: No abnormal uptake LOCALIZATION CT: Prostate is not identified. Correlate with surgical history COMPARISON: No significant interval change IMPRESSION: 1. No suspicious radiotracer accumulation to suggest metastatic prostate cancer. [facility], , 04/26/2024 1:33 PM
== END | disposition home or self-care (01) ==
LOC: RADPETMAIN 14:36
PROVIDERS: ATTEND Urology
DX: C61 Malignant neoplasm of prostate (principal); Z85.46 Personal history of malignant neoplasm of prostate
CPT/HCPCS: 78815; A9596

== ENCOUNTER → 2024-09-17 | Outpatient (CLI) | payer MEDICARE ==
--- NOTE | 2024-09-17 12:11 | MM ---
Reason for Exam: Clinical finding. Tissue Density: The breasts are almost entirely fatty. Findings: Analyzed By CAD. There is retroglandular flame-shaped tissue left breast compatible with gynecomastia. Confirmation with ultrasound is recommended. Right breast is unremarkable. Overall Assessment: Incomplete: need additional imaging evaluation, BI-RAD 0 Management: Diagnostic Breast Ultrasound of the left breast. . Results were given to the patient verbally at the time of exam. Patient should continue monthly self-breast exams. A clinical breast exam by your physician is recommended on an annual basis. This exam should not preclude additional follow-up of suspicious palpable abnormalities. Note on Ann scores and lifetime risk: 1. A Ann score greater than 3% is considered moderate risk. If this is the case, consider specialist referral to assess eligibility for a risk reducing agent. 2. If overall lifetime risk for the development of breast cancer is 20% or higher, the patient may qualify for future screening with alternating mammogram and breast MRI. [facility], , 09/17/2024 12:01 PM. Electronically signed and approved by: Milton Mclaughlin M.D. Radiologis
--- NOTE | 2024-09-17 13:29 | USB ---
Reason for Exam: Clinical finding. Patient History: Other cancer, age 56. Sister had breast cancer, age 30. Technique: Method: Targeted. Findings: The axilla of the left breast and the retroareolar of both breasts were scanned. There is left-sided retroareolar flame-shaped density measuring 2.5 cm in maximal dimension compatible with gynecomastia. Comparison of the right breast reveals no additional gynecomastia or masses. Manage clinically. Overall Assessment: Benign, BI-RAD 2 Management: Clinical Management of both breasts. A clinical breast exam by your physician is recommended on an annual basis and results should be correlated with mammographic findings. This exam should not preclude additional follow-up of suspicious palpable abnormalities. Results were given to the patient verbally at the time of exam. Electronically signed and approved by: Milton Mclaughlin M.D. Radiologis
== END | disposition home or self-care (01) ==
LOC: RADMAMWWP 11:32
PROVIDERS: ATTEND Radiology Radiation Oncology
DX: R92.0 Mammographic microcalcification found on diagnostic imaging of breast (principal); C61 Malignant neoplasm of prostate; R92.313 Mammographic fatty tissue density, bilateral breasts; Z80.3 Family history of malignant neoplasm of breast
CPT/HCPCS: 77062; 77066

== ENCOUNTER 2024-10-21 06:16 | Day surgery (SDC) | payer MEDICARE ==
[~2024-10-21 06:16] MED LIST changes: -ACETAMINOPHEN TAB 500 MG TAB PO ONE; -DEXAMETHASONE SOD PHOSPHATE 10 MG/ML 1 ML VIAL IV ONE; -HEPARIN SODIUM,PORCINE 5,000 UNIT/ML 1 ML VIAL SQ ONE; -LACTATED RINGERS 1,000 ML IV SCH; -ONDANSETRON 4 MG/2 ML VIAL IVP ONE; -SCOPOLAMINE 1.5MG/72HR PATCH TRANSDERM ONE; +fentaNYL (PF) 50 MCG/ML 5 ML AMP IVP PRN
[2024-10-21] MEDS ORDERED: BENZOCAINE SPRAY 1 EACH MM SCH (07:00)
[2024-10-21 07:04] VITALS: RESP 16; TEMP 97.8
[2024-10-21] MEDS: BENZOCAINE SPRAY 1 EACH MUCOUS MEM ONE (07:55)
[2024-10-21] MEDS: fentaNYL (PF) 50 MCG/ML 2 ML AMP IVP ONE ×2 (07:56→08:05)
[2024-10-21] MEDS: MIDAZOLAM 2 MG/2 ML VIAL IVP ONE ×2 (07:56→08:00)
[2024-10-21] MEDS: SODIUM CHLORIDE 0.9% 500 ML 500 ML IV ONE (08:27)
[2024-10-21 09:38] VITALS: BP 124/61; PULSE 69
--- NOTE | 2024-10-21 13:33 | P.TEE ---
Date of Procedure: 10/21/24 Description of Procedure(s): Procedure performed: 1. Transesophageal Echocardiogram with color flow doppler, pulsed wave doppler and continuous wave doppler, (CPT 77910, +[id number], [phone]) 2. Moderate conscious sedation. Sedation time 6 mins. (CPT 26384) Indications: Severe aortic stenosis, ascending aortic dilatation, concerns of bicuspid aortic valve Consent: I have discussed the risks, benefits and alternative therapies for the above-mentioned procedure. The patient has indicated understanding and acceptance of the risks of the procedure. Signed consent was obtained and was placed in the paper chart. Procedural Steps: Timeout was performed in usual fashion. Patient's heart rate, blood pressure, oxygen saturation and ECG were monitored. Benzocaine was sprayed liberally in the back of the throat. Bite block was placed between the jaw. 3 mg of Versed and 75 mcg of Fentanyl were administered intravenously. After achieving appropriate moderate conscious sedation, DANIEL probe was advanced without difficulty and without any immediate complications to the esophagus. DANIEL study was performed with color flow doppler, pulsed wave doppler and continuous wave doppler. The probe was then removed. Patient tolerated the procedure well. Patient was transferred to the post procedure area in stable and satisfactory condition. Throughout the procedure patient's heart rate, blood pressure, oxygen saturation and ECG were monitored. Total sedation time 6 mins. Complications: none FINDINGS Left Atrium: Normal Left atrial size. No evidence of mass or thrombus seen Left Atrial Appendage: No evidence of thrombus or mass seen in MIKAYLA Inter atrial septum: Intact inter-atrial septum with no evidence of atrial septal defect or patent foramen ovale. Left Ventricle: Normal global LV size and systolic function. Mild concentric LVH Right Atrium: Normal overall RA size Right Ventricle: Normal global RV size and systolic function Aortic Valve: Bicuspid aortic valve with fused right and noncoronary cusp. Calcified. Severe aortic stenosis. No significant regurgitation. Mitral Valve: Struturally normal. Mild mitral regurgitation Pulmonic Valve: Not well visualized. Tricuspid Valve: Mild tricuspid regurgitation Ascending aorta, Aortic root and Aortic arch: Normal size aortic root. Dilated ascending aorta measuring 4.4 cm. Descending aorta: Mild intimal thickening. No pericardial effusion CONCLUSION: Bicuspid calcified aortic valve Severe aortic stenosis Mild ascending aorta dilatation measured at 4.4 cm Mild concentric LVH with normal LV size and systolic function Mild mitral regurgitation, mild tricuspid regurgitation Serjio Chin MD, RPVI, FACC
== END 2024-10-21 09:34 | disposition home or self-care (01) ==
LOC: CATHCVL 06:16
PROVIDERS: ATTEND Student in an Organized Health Care Education/Training Program
DX: I35.0 Nonrheumatic aortic (valve) stenosis (principal); Q23.81 Bicuspid aortic valve; I08.3 Combined rheumatic disorders of mitral, aortic and tricuspid valves; I48.0 Paroxysmal atrial fibrillation; I48.92 Unspecified atrial flutter; I11.9 Hypertensive heart disease without heart failure; E78.5 Hyperlipidemia, unspecified; I71.21 Aneurysm of the ascending aorta, without rupture; C61 Malignant neoplasm of prostate; Z79.01 Long term (current) use of anticoagulants; Z79.899 Other long term (current) drug therapy; Z88.2 Allergy status to sulfonamides; Z88.8 Allergy status to other drugs, medicaments and biological substances
CPT/HCPCS: 93312; 93320; 93325; J2250; J3010

== ENCOUNTER → 2024-11-19 | Outpatient (CLI) | payer MEDICARE ==
[2024-11-20 02:48] LABS: Basophils # (A) 0.03 X 10*3/uL (0.00-0.10); Basophils % (A) 0.7 %; Eosinophils # (A) 0.14 X 10*3/uL (0.04-0.35); HCT 40.4 % (39.6-50.0); HGB 13.3 g/dL (13.0-17.0); Lymphocytes # (A) 0.52 X 10*3/uL (0.90-5.00); Lymphocytes % (A) 11.3 %; MCHC 32.9 g/dL (32.0-37.0); MCV 97.1 FL (80.0-97.0); Mean Platelet Volume 9.1 FL (9.5-12.2); Monocytes # (A) 0.53 X 10*3/uL (0.20-1.00); Monocytes % (A) 11.5 %; NRBC Per 100 WBC 0 X 10*3/uL (0.00-0.01); Neutrophils # (A) 3.38 X 10*3/uL (1.80-7.70); Neutrophils % (A) 73.3 %; Platelet Count 195 X 10*3/uL (140-440); RBC 4.16 X 10*6/uL (4.40-5.60); RDW 13.7 % (11.5-14.5); WBC 4.61 X 10*3/uL (4.50-10.00)
[2024-11-20 03:08] LABS: ALT 49 U/L (10-49); AST 30 U/L (14-35); Albumin 4.5 g/dL (3.8-4.9); Albumin/Globulin Ratio 1.67 Ratio (1.60-3.17); Alkaline Phosphatase 80 U/L (41-126); BUN/Creat Ratio 18.67 Ratio (12.00-20.00); Blood Urea Nitrogen 16.8 mg/dL (9.0-27.0); Calcium 9.2 mg/dL (8.7-10.3); Carbon Dioxide 22.7 mmol/L (21.6-31.8); Chloride 106 mmol/L (96-109); Globulin 2.7 g/dL (1.6-3.3); Glucose 118 mg/dL (70-110); Potassium 4.2 mmol/L (3.5-5.5); Prostate Specific Antigen 0.07 ng/mL (0.000-4.500); Sodium 141 mmol/L (135-145); Total Bilirubin 0.3 mg/dL (0.3-1.2); Total Protein 7.2 g/dL (6.2-8.2)
== END | disposition home or self-care (01) ==
LOC: LABWHC1 15:41
PROVIDERS: ATTEND Radiology Radiation Oncology
DX: N63.20 Unspecified lump in the left breast, unspecified quadrant (principal); C61 Malignant neoplasm of prostate; R53.82 Chronic fatigue, unspecified; D63.0 Anemia in neoplastic disease
CPT/HCPCS: 36415; 80053; 84153; 84403; 85025